=== PATIENT | male | born 1955 | race Caucasian/White ===

== ENCOUNTER 2017-01-23 21:34 | Emergency (ER) | payer MEDICARE ==
[2017-01-23 21:44] VITALS: BP 124/94
[2017-01-23] MEDS ORDERED: predniSONE TAB* 20 MG PO ONE (21:53)
[2017-01-23] MEDS ORDERED: Cephalexin CAP* 500 MG PO ONE (21:54)
--- NOTE | 2017-01-23 21:56 | UC ---
Skin Complaint HPI - HPI Summary HPI Summary: 61 YEAR OLD PRESENTS WITH A HORNET STING ON HIS RIGHT HAND. - History of Current Complaint Chief Complaint: UCSkin Time Seen by Provider: 01/23/17 21:49 Stated Complaint: HORNET STINGS-REACTION - Allergy/Home Medications Allergies/Adverse Reactions: Allergies Allergy/AdvReac Type Severity Reaction Status Date / Time Ziprasidone [From Geodon] Allergy Swelling Verified 01/23/17 21:44 Of Face,Lips,& Throat Home Medications: Home Medications Colchicine* [Colcrys*] 0.6 mg PO BEDTIME 01/23/17 [History Confirmed 01/23/17] Review of Systems Constitutional: Negative Skin: Other - HORNET STING RIGHT AHND Eyes: Negative ENT: Negative Respiratory: Negative Cardiovascular: Negative Gastrointestinal: Negative Genitourinary: Negative Motor: Negative Neurovascular: Negative Musculoskeletal: Negative Neurological: Negative Psychological: Negative All Other Systems Reviewed And Are Negative: Yes PMH/Surg Hx/FS Hx/Imm Hx Previously Healthy: Yes - Surgical History Surgical History: Yes Surgery Procedure, Year, and Place: left hip replaced - Family History Known Family History: Positive: Cardiac Disease, Hypertension - Social History Alcohol Use: Weekly Substance Use Type: None Smoking Status (MU): Never Smoked Tobacco - Immunization History Most Recent Tetanus Shot: UTD Physical Exam Triage Information Reviewed: Yes Vital Signs: Initial Vital Signs Temp 36.8 C 01/23/17 21:35 Pulse 72 01/23/17 21:35 Resp 18 01/23/17 21:35 BP 124/94 01/23/17 21:35 Pulse Ox 97 01/23/17 21:35 Eye Exam: Normal ENT Exam: Normal Dental Exam: Normal Neck exam: Normal Neck: Positive: 1 Respiratory Exam: Normal Cardiovascular Exam: Normal Abdominal Exam: Normal Musculoskeletal Exam: Normal Neurological Exam: Normal Psychological Exam: Normal Skin: Positive: Other - HORNET STING RIGHT HAND Course/Dx - Course Course Of Treatment: HORNET STING RIGHT HAND - Diagnoses Provider Diagnoses: INSECT STING Discharge - Discharge Plan Condition: Stable Disposition: HOME Prescriptions: Cephalexin CAP* [Keflex CAP*] 500 mg PO TID #30 cap LoraTADine TAB(NF) [Claritin 10 MG TAB(NF)] 10 mg PO DAILY #30 tab Triamcinolone 0.1% CREAM (NF) [Kenalog 0.1% Cream (NF)] 1 applic .SEE ORDER TID PRN #90 gm PRN Reason: Itching predniSONE TAB* [Deltasone TAB*] 40 mg PO DAILY #10 tab Referrals: No Primary Care Phys,NOPCP [Medical Doctor] - As Soon As Possible
== END 2017-01-23 22:00 | disposition home or self-care (01) ==
LOC: UCEAST 21:34
DX: T63.441A Toxic effect of venom of bees, accidental (unintentional), initial encounter (principal); Y92.9 Unspecified place or not applicable
CPT/HCPCS: 99212; A9270-GY; G0463; J7512

== ENCOUNTER 2019-05-26 07:05 | Emergency (ER) | payer MEDICARE ==
--- NOTE | 2019-05-26 07:08 | UC ---
Hand/Wrist HPI - HPI Summary HPI Summary: Patient presented to urgent care for evaluation of his right wrist. Patient's right-hand dominant. Patient had right rotator cuff surgery in February at [facility]. Patient states after this procedure he has persistently had some swelling of his right wrist. Patient states when he elevates it gets better. Patient states intermittently he has some deep ache for which takes ibuprofen helps. Patient states on May 05 he reinjured the shoulder when he started a snowblower. Patient states he continues in physical therapy. Patient states he is concerned that he still ultimately has some swelling once to make sure is nothing broken. Patient does not recall specific trauma. Patient has never had surgery to the wrist. Patient denies any paresthesias or weakness. Medications as noted in the EMR by the RN at triage was reviewed. - History Of Current Complaint Stated Complaint: WRIST INJURY Hx Obtained From: Patient Onset/Duration: Gradual Onset Severity Currently: None - Allergies/Home Medications Allergies/Adverse Reactions: Allergies Allergy/AdvReac Type Severity Reaction Status Date / Time ziprasidone [From Ramila] Allergy Intermediate vertigo Verified 05/26/19 07:18 Home Medications: Home Medications Albuterol HFA INHALER* [Ventolin HFA Inhaler*] 1 puff INH Q6H PRN 05/26/19 [ History Confirmed 05/26/19] PMH/Surg Hx/FS Hx/Imm Hx Previously Healthy: Yes - Surgical History Surgical History: Yes Surgery Procedure, Year, and Place: left hip replaced - Family History Known Family History: Positive: Cardiac Disease, Hypertension, Non-Contributory - Social History Lives: With Family Alcohol Use: Weekly Substance Use Type: None Smoking Status (MU): Never Smoked Tobacco - Immunization History Most Recent Tetanus Shot: UTD Review of Systems All Other Systems Reviewed And Are Negative: Yes Constitutional: Positive: Negative Skin: Positive: Negative Musculoskeletal: Positive: Other: - Right wrist pain and swelling intermittent Physical Exam - Summary Physical Exam Summary: Vital Signs Reviewed: Yes A+Ox3, no distress Eyes: Conjunctiva Clear ENT: Hearing grossly normal neck: supple Respiratory: Positive: No respiratory distress, No accessory muscle use Cardiovascular: skin color reflect adequate perfusion 2+ radial, CBT < 2 sec all digits Musculoskeletal Exam: + extend/flex elbow, wrist + pronat/supinate Pain along volar aspect of right wrist., radial aspect no snuff box. no pain carpals, metacarpals Neurological: Positive: Alert, ambulatory without difficulty + thumb up, a ok, finger cross, finger spread Psychological: Positive: Normal Response To Family Skin: Positive: no rash, no ecchymosis Triage Information Reviewed: Yes Diagnostics - Radiology No standard instances Radiology Interpretation Completed By: Radiologist - Patient Name: BIANKA LOMBARDO Medical Record#: [id number] Ordering Physician: Oma Dong MD Acct.#: [id number] : 1955 Age: 63 Sex: M Location: [facility] Exam Date: 05/26/19732 ADM Status: REG ER Order Information: WRIST RIGHT 3+ VWS Accession Number: [id number] CPT: 78228 Clinical history: Right wrist pain. COMPARISON: None available. TECHNIQUE: 3 radiographic views of the right wrist were obtained. Findings: The soft tissues are unremarkable. The bone mineralization is within normal limits. No fracture is identified. Anatomic alignment is maintained. 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 No fracture is identified. 2. 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 3. Mild first CMC osteoarthropathy. <Electronically signed by Landry Cannon MD in [place]> 05/26/19807 Dictated By: Landry Cannon MD Dictated Date/Time: 05/26/19805 Transcribed Date/ Time: 05/26/19805 Copy to: CC:Oma Dong MD; No Primary Care Phys,NOPCP Imaging - [facility] Imaging - [facility] Imaging - [facility] [address] [address] ph [phone]) ph [phone]) ph ) This report is only to be considered final once signed by the Provider(s) as displayed in the "<Electronically Signed by >" field (s). Absence of a signature indicates the report is in a draft status and still needs to be finalized. In the event this document was created by someone other than the signing Provider, the individual initiating the document will be listed in the "Entered by:" or "Dictated by:" keen. 1 of 1 Hand/Wrist Course/Dx - Course Course Of Treatment: Patient presents to urgent care for evaluation of his right wrist. Patient states since he had right rotator cuff surgery in February he isn't really having swelling. Patient reports mild discomfort in the wrist as well. No trauma. Patient takes Tylenol with improvement. Patient denies any weakness or paresthesias. This is patient's stoma hand. Patient concerned he may have had a fractured did not help. On exam vital signs are elevated blood pressure. Patient with a history of same. Recommended no PCP. Patient does have some mild tenderness the volar aspect of the wrist at the radial side. No focal crepitus or deformity. Patient denies flank pain. Distal CSM are intact. We' ll check imaging. Anticipate will place patient in a splint. Patient requests a copy of his x-rays for his orthopedic [place]. Elevate. splint - will use thumb spica Motrin and Tylenol. Follow-up. Patient comfortable with plan. Closely - Differential Dx/Diagnosis Provider Diagnosis: Wrist pain, right, Arthritis Discharge ED - Sign-Out/Discharge Documenting (check all that apply): Patient Departure All imaging exams completed and their final reports reviewed: Yes - Discharge Plan Condition: Stable Disposition: HOME Patient Education Materials: Swollen Joint (ED), Arthritis (ED) Referrals: [facility] Orthopedic Services [Provider Group] [facility] [place] [facility] REFERRAL [Outside] Non Staff,Doctor [Medical Doctor] - Additional Instructions: -wear splint for comfort and support as much as possible -apply ice (20 min at a time) every 2-3 hours for the next 2 days --Okay to alternate ibuprofen (Advil, Motrin) and Tylenol product (Tylenol) every 3 hours for pain. Take with food. Do NOT take for more than 4-5 days. - Elevate your arm to help with swelling and pain -Contact your orthopedic provider in [place] or the local learning disabilities specialist you were referred to on Monday to schedule a follow-up appointment. . Contact your doctor or return with questions or concerns - Billing Disposition and Condition Condition: STABLE Disposition: Home
[2019-05-26 07:18] VITALS: BP 164/81
== END 2019-05-26 08:27 | disposition home or self-care (01) ==
LOC: UCEAST 07:05
DX: M25.531 Pain in right wrist (principal); M13.831 Other specified arthritis, right wrist; Z96.642 Presence of left artificial hip joint; Z88.8 Allergy status to other drugs, medicaments and biological substances
CPT/HCPCS: 99212; G0463